=== PATIENT | female | born 1985 | race Caucasian/White ===

== ENCOUNTER 2017-08-21 17:18 | Emergency (ER) | payer OTHER ==
[~2017-08-21] VITALS: Ht 154.9 cm; Wt 83.4 kg
[2017-08-21 18:11] LABS: HEMATOCRIT 43.9 % (34.6-47.8); HEMOGLOBIN 14.8 g/dL (11.7-16.4); WHITE BLOOD COUNT 12.4 x10^3/uL (3.4-10)
[2017-08-21 18:23] LABS: ASPARTATE AMINO TRANSFERASE 23 U/L (15-37); BLOOD UREA NITROGEN 15 mg/dL (7-18)
[2017-08-21 18:31] LABS: IS PT STATUS REG ER OR PRE ER? YES
[2017-08-21 19:01] VITALS: BP 128/76
== END 2017-08-21 19:03 | disposition home or self-care (01) ==
LOC: ED 18:29
DX: R00.2 Palpitations (principal); R42 Dizziness and giddiness; R20.9 Unspecified disturbances of skin sensation
CPT/HCPCS: 36415; 71010; 80053; 84439; 84443; 84484; 84703; 85025; 93005; 99285

== ENCOUNTER 2017-08-25 00:26 | Emergency (ER) | payer OTHER ==
[~2017-08-25] VITALS: Ht 154.9 cm; Wt 83.4 kg
[2017-08-25] MEDS ORDERED: LORA-446 PO (03:10)
[2017-08-25] MEDS ORDERED: PROP10TA PO (03:10)
[2017-08-25 03:11] VITALS: BP 135/74
== END 2017-08-25 03:13 | disposition home or self-care (01) ==
LOC: ED 02:58
DX: F41.1 Generalized anxiety disorder (principal)
CPT/HCPCS: 93005; 99283